=== PATIENT | female | born 1960 | race Two or more races ===

== ENCOUNTER 2025-01-28 23:17 | Emergency (ER) | payer MEDICARE, MEDICAID, SELFPAY ==
[2025-01-28 23:44] VITALS: BP 151/66; PULSE 66; RESP 18; TEMP 36.6; O2SAT 96; BMI 38.9
--- NOTE | 2025-01-29 00:23 | XR_ITS ---
Examination: CT cervical spine without contrast 2-D sagittal reconstructions 2-D coronal reconstructions 3-D reconstructions. Exam date and time: January 29, 2025, 0042 hours, comparison November 17, 2022 INDICATIONS: Neck pain radiating to left arm today CTDI:vol (mGy) 15.36 DLP: (mGycm) 317 Technique: Multiple 2 mm axial sections of the cervical spine have been obtained. The coronal and sagittal reconstructions have been obtained. 3-D reconstructions have been obtained. Low dose protocols were performed. One or more of the following dose reduction techniques were used; automated exposure control, adjustment of the mA and/or KV according to patient size, use of iterative reconstruction technique. Findings: Axial sections demonstrate intact base of the skull. C1 exhibit satisfactory relationship to the odontoid. No acute cervical vertebral body fracture seen. Alignment posterior spinous processes satisfactory. Moderate disc narrowing C6-C7 Impression: No acute cervical fracture. If symptoms persist, consider MRI cervical spine without contrast follow-up
--- NOTE | 2025-01-29 00:23 | XR_ITS ---
EXAMINATION: AP chest single view TECHNIQUE: AP portable upright chest single view Date and time: January 29, 2025, 0106 hours INDICATIONS: Chest pain shortness of breath beginning 2 days ago. FINDINGS: Normal heart size Mild ectasia thoracic aorta. No pneumonia or pulmonary edema Significant osteopenia IMPRESSION: No active disease
--- NOTE | 2025-01-29 00:23 | EKG_ITS ---
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
--- NOTE | 2025-01-29 00:24 | XR_ITS ---
Examination: CT brain head without contrast. 2-D sagittal coronal reconstructions Date and time of exam: January 29, 2025, 1241 hours INDICATIONS: Headaches left arm numbness onset today CTDI: vol (mGy): 48.50 DLP: (mGycm): 937 Technique: Multiple CT axial sections of the brain have been obtained, 5 mm slice thickness. Contrast has not been administered. 2-D sagittal, coronal reconstructions have been obtained Low dose protocols were performed. One or more of the following dose reduction techniques were used; automated exposure control, adjustment of the mA and/or KV according to patient size, use of iterative reconstruction technique. Findings: No significant ventricular enlargement. Intra-axial or extra-axial hemorrhage density is not seen. No mass effect or midline shift Basal cisterns are not remarkable. Fourth ventricle is midline. Cranial vault intact. Impression: Negative for acute hemorrhage, mass effect or midline shift Advise clinical correlation and follow-up accordingly
--- NOTE | 2025-01-29 00:24 | XR_ITS ---
Examination: CT chest, without intravenous contrast. CT abdomen, without intravenous contrast. CT pelvis, without intravenous contrast. 2-D sagittal and coronal reconstructions. 3-D reconstructions. Date and time of exam: January 29, 2025, 0044 hours, comparison April 19, 2022 INDICATIONS: Onset chest and abdominal pain today CTDI vol (mgy) 16.21 DLP (MGycm) 1216 Technique: Multiple CT images, 3.0 mm slice thickness, obtained chest, abdomen, pelvis, with the high-resolution 64 slice scanner.. Sagittal and coronal 2-D reconstructions are obtained. 3-D reconstructions Low dose protocols were performed. One or more of the following dose reduction techniques were used; automated exposure control, adjustment of the mA and/or KV according to patient size, use of iterative reconstruction technique. Findings: Thoracic aortic calcification no aneurysmal dilatation Pulmonary artery segments are not enlarged Moderate calcification left anterior descending coronary artery No paratracheal tracheobronchial or bronchopulmonary adenopathy 2 mm pulmonary nodule right upper lobe Atelectasis versus pneumonia in the right upper lobe and lingular segment No pulmonary edema No pleural disease Trace pericardial thickening Mild enlargement cardiac contour No visualized liver or splenic lesion, fatty infiltration in the liver Absent gallbladder No pancreatic or adrenal mass Moderate renal scarring, no hydronephrosis or renal calculi Aorta normal size Normal appendix No bowel obstruction Urinary bladder intact Prominent osteopenia with advanced disc narrowing L5-S1 IMPRESSION: Coronary artery calcification Small pericardial effusion Atelectasis versus pneumonia in the right upper lobe and lingular segment left upper lobe Fatty infiltration throughout the liver
--- NOTE | 2025-01-29 00:34 | PD.EDCHEST ---
ED Chest Pain RME/HPI General Chief Complaint: General Adult/Misc Complain Stated Complaint: thinks she has High BP Time Seen by Provider: 01/29/25 00:21 Arrival date/time: 01/28/25 23:17 RME / HPI RME / HPI narrative: See [facility] for Dr. Desai's HPI Documentation. Related Data Home Medications ?Medication ?Instructions ?Recorded ?Confirmed glyburide 2.5 mg tablet 2.5 mg PO DAILY ##0 05/14/07 06/05/21 lovastatin 20 mg tablet 40 mg PO HS ##0 05/14/07 06/05/21 gabapentin 600 mg tablet 600 mg PO TID #0 tabs 04/01/15 06/05/21 lisinopril 20 mg tablet 20 mg PO QDAY #0 tabs 09/01/16 06/05/21 albuterol sulfate 90 mcg/actuation 2 puff inhalation Q4H PRN wheeze 01/21/19 06/05/21 aerosol inhaler levothyroxine 150 mcg tablet 175 mcg PO QDAY 01/21/19 06/05/21 (Synthroid) oxybutynin chloride 10 mg 10 mg PO QDAY 03/07/20 06/05/21 tablet,extended release 24 hr estradiol 10 mcg vaginal tablet 10 mcg vaginal DIRECTED 06/05/21 06/05/21 (Vagifem) Previous Rx's ?Medication ?Instructions ?Recorded ferrous sulfate 325 mg (65 mg 1 tab PO BID #120 tabs 09/01/16 iron) tablet sumatriptan succinate 50 mg tablet 50 mg PO Q2H PRN migraine headache 01/11/19 (Imitrex) #10 tabs ipratropium bromide 0.02 % 0.5 mg (2.5 mL) inhalation Q6H 09/08/19 solution for inhalation #62.5 mL albuterol sulfate 90 mcg/actuation 2 puff inhalation QID #8.5 grams 08/04/22 aerosol inhaler azithromycin 250 mg tablet See Rx Instructions PO .COMPLEX #6 08/04/22 tabs alprazolam 0.5 mg tablet (Xanax) 0.5 mg PO BID PRN anxiety #10 tabs 01/29/25 azithromycin 500 mg tablet 500 mg PO QDAY 3 days #3 tabs 01/29/25 (Zithromax TRI-AMELIE) cefdinir 300 mg capsule 300 mg PO BID #14 caps 01/29/25 ondansetron 4 mg disintegrating 4 mg PO TID PRN nausea and 01/29/25 tablet vomiting 30 days #10 tabs Allergies Allergy/AdvReac Type Severity Reaction Status Date / Time No Known Allergies Allergy Verified 01/28/25 23:20 Review of Systems Review of Systems Systems Reviewed: All systems reviewed, normal except as documented Past Medical History Past Medical History CARDIAC: Positive Hypercholesterolemia and Hypertension RESPIRATORY: Positive Asthma and Sleep Apnea ENDOCRINE: Positive Diabetes Mellitus Type 2 and Hypothyroidism Surgical History SURGICAL: Positive Abdominal Surgery and Section ED Exam Narrative Physical exam: See [facility] for Dr. Desai's Physical Exam Documentation. Course Quality Measures none Orders Category Date Time Status EKG (ED ONLY) *Do not use* NOW Care 01/29/25 00:23 Completed Saline [Insert IV] NOW Care 01/29/25 00:22 Completed Straight [In and Out Catheter] X1 Care 01/29/25 00:[address] cervical spine wo con Stat Exams 01/29/25 00:[address] chest abdomen pelvis wo Stat Exams 01/29/25 00:[address] head/brain wo con Stat Exams 01/29/25 00:24 Completed EKG (ED Only) Stat Exams 01/29/25 00:23 Draft XR chest 1V portable Stat Exams 01/29/25 00:23 Completed BNP [B-Type Natriuretic Peptide] Stat Lab 01/29/25 01:03 Completed Bilirubin,Direct Stat Lab 01/29/25 01:03 Completed CBC Stat Lab 01/29/25 01:03 Completed CMP [Comprehensive Metabolic Panel] Stat Lab 01/29/25 01:03 Completed Free T3 Stat Lab 01/29/25 01:03 Completed Free T4 (Free Thyroxine) Stat Lab 01/29/25 01:03 Completed Hemoglobin A1C [Glycohemoglobin w (eAG)] Stat Lab 01/29/25 01:03 Completed Lipase Stat Lab 01/29/25 01:03 Completed Magnesium Stat Lab 01/29/25 01:03 Completed TSH [Thyroid Stimulating Hormone] Stat Lab 01/29/25 01:03 Completed Troponin I Stat Lab 01/29/25 01:03 Completed UA, C/S IF [Urinalysis, C/S if Indicated] Stat Lab 01/29/25 01:00 Completed ALPRazoLAM [Xanax] Med 01/29/25 00:22 Discontinued 0.5 mg PO X1 ONE Azithromycin Po [Zithromax PO] Med 01/29/25 03:13 Discontinued 500 mg PO X1 ONE Ondansetron Inj [Zofran Inj] Med 01/29/25 00:22 Discontinued 4 mg IVP X1 ONE Sodium Chloride 0.9% 1000 ml [Ns] 1,000 ml Med 01/29/25 00:22 Discontinued IV 999 mls/hr cefTRIAXone/D5w 1gm IV premix [Rocephin/D5w 1gm IV Med 01/29/25 03:13 Discontinued premix] 1 gm in 50 ml IV X1 Vital Signs Vital signs: Vital Signs Temperature 97.8 F 01/28/25 23:44 Pulse Rate 66 01/28/25 23:44 Respiratory Rate 18 01/28/25 23:44 Blood Pressure 151/66 H 01/28/25 23:44 Pulse Oximetry (%) 96 01/28/25 23:44 Oxygen Delivery Method Room Air 01/28/25 23:44 Chest Pain MDM Narrative MDM Narrative:: This section includes all my notes and documentations, including HPI, PE, and ED course. Thaddeus Desai MD HPI: 64 y/o female with Hx of Hypercholesterolemia, Hypertension, Asthma, and Diabetes Mellitus Type 2 presents with multiple concerns. Including a week history of worsening cough, productive cough, purulent sputum, and dyspnea. And frequent episodes in the past few days of varying in different symptoms, which can include intense fear, pounding and racing heart, sweating, chills, shaking, trouble breathing, chest pain, stomach pain, nausea, numbness and tingling in the hands and feet and face, confusion, hot flashes, and feeling faint. No other complaints. ROS: All negative except as documented in HPI. Physical Exam: General: Alert and oriented. Appears anxious. Eyes: Conjunctivae and lids clear. EOMI. PERRL. ENT: No nasal congestion. Pharynx normal. Tympanic membrane normal bilaterally. Neck: Supple. No carotid bruit. No JVD. Heart: RRR. Lungs: No respiratory distress. Good air movement with bibasilar rales. Chest: No tenderness. Abdomen: Soft and nontender. Normal bowel sounds. No distension. No rebound or guarding. Back: No tenderness. Legs: No clubbing, cyanosis, edema. Skin: Warm and dry. Neuro: Alert and oriented X 3. Cranial Nerves II-XII grossly intact. No peripheral motor deficits. I reviewed all diagnostic test results: My interpretation of the EKG is: Sinus rhythm (66 bpm) with first-degree AV block and nonspecific ST-T changes. My interpretation of the chest x-ray is no acute findings. My review of the Head/Brain CT report is no acute findings. My review of the Chest/Abdomen/Pelvis CT report is pneumonia. My review of the C-Spine CT report is no acute fracture. Blood tests and urine tests unremarkable. At this point, diagnoses include: Pneumonia Anxiety Treatment here included: IVF Xanax 0.5 mg Zofran 4 mg IV Rocephin 1 G IV Zithromax 500 mg orally She felt much better. Recommended more outpatient care. Based on my best medical judgment, made decision no further evaluation or treatment indicated at this time. Patient understands and agrees to the discharge instructions customized and printed, see below. Discharge instructions from Dr. Desai: 1. After extensive evaluation, there is no life-threatening condition.? Such as stroke or brain tumor or heart attack. 2. But you have pneumonia, see attached handout. Take cefdinir and Zithromax as prescribed. For good hydration, increase oral fluid and maintain clear urine. If dark or yellow, increase oral fluid. Zofran for nausea/vomiting. 3. Take Xanax as needed for stress/anxiety.? Avoid more than 2 to 3 pills/week, to prevent dependence on the medication. 4. See a private doctor on 02/01/2025. Ask for help until you are completely better. Ask to review all test results and official radiology reports, to make sure you receive all necessary follow-ups and monitoring. To make sure there is no serious underlying heart condition, ask to help you get more tests for your heart that cannot be done here in the ER.? Such as Holter Monitor (cardiac monitoring at home from a day to even a month), heart stress test (on treadmill or with medication), echocardiogram (imaging of your heart structures), heart catherization (checking for blockages in your heart arteries), and a referral to see a Survey Methodologist. 5. Seek immediate medical care with worsening or with any concerns.?? Thaddeus Desai MD Patient data External records reviewed:: [facility] previous records (Reviewed prior ED records from 08/04/22. Patient was seen for Asthmatic bronchitis.) Clinical information provided by:: patient Social determinants that could affect healthcare access:: none Patient has the following chronic illnesses:: Hypercholesterolemia, Hypertension, Asthma, Sleep Apnea, Diabetes Mellitus Type 2 and Hypothyroidism How is presenting disease/condition affected by chronic disease/condition?: exacerbated by Evaluation data The following diagnostics were reviewed and interpreted by me:: lab results, radiology exam(s) and EKG tracing(s) (My interpretation of the EKG is: Sinus rhythm (66 bpm) with first-degree AV block and nonspecific ST-T changes. Thaddeus Desai MD) Lab and/or radiology exams considered but not ordered:: None Interpretation Summary: I reviewed all diagnostic test results: My interpretation of the EKG is: Sinus rhythm (66 bpm) with first-degree AV block and nonspecific ST-T changes. My interpretation of the chest x-ray is no acute findings. My review of the Head/Brain CT report is no acute findings. My review of the Chest/Abdomen/Pelvis CT report is pneumonia. My review of the C-Spine CT report is no acute fracture. Blood tests and urine tests unremarkable. Medications / Prescriptions Medications or Prescriptions considered but not ordered:: None Medication administrations:: Medication Administration History Discontinued Medications Alprazolam (Alprazolam 0.25 Mg Tablet) 0.5 mg PO X1 ONE Stop: 01/29/25 00:23 Last Admin: 01/29/25 00:59 Dose: 0.5 mg Documented By: MADISON Azithromycin (Azithromycin 250 Mg Tablet) 500 mg PO X1 ONE Stop: 01/29/25 03:14 Last Admin: 01/29/25 03:42 Dose: 500 mg Documented By: MADISON Sodium Chloride (Ns) 1,000 mls @ 999 mls/hr IV .Q1H1M ONE Stop: 01/29/25 01:22 Last Infusion: 01/29/25 02:11 Dose: Infused Documented By: Admin: 01/29/25 01:00 Dose: 999 mls/hr Documented By: MADISON Ceftriaxone Sodium/Dextrose (Rocephin/D5w 1gm Iv Premix) 1 gm in 50 mls @ 100 mls/hr IV X1 ONE Stop: 01/29/25 03:42 Last Admin: 01/29/25 03:43 Dose: 100 mls/hr Documented By: MADISON Ondansetron HCl (Ondansetron Inj 2 Mg/Ml Inj 2 Ml) 4 mg IVP X1 ONE; Protocol Stop: 01/29/25 00:23 Last Admin: 01/29/25 00:59 Dose: 4 mg Documented By: MADISON Treatment here included: IVF Xanax 0.5 mg Zofran 4 mg IV Rocephin 1 G IV Zithromax 500 mg orally Consultations Consultation(s) initiated? (list below): No Diagnosis Chest Pain Differential Diagnosis: pneumothorax, atypical chest pain, st elevation myocardial infarction, costochondritis, chest pain, biliary colic and other (Torticollis, Migraine, Radiculopathy) Most likely diagnosis given after review of the tests above:: Pneumonia Anxiety Admission Indicated Admission indicated?: not indicated Explain why admission is indicated or not indicated:: With significant improvement and no condition needing emergent intervention, there was no indication for admission. Admission Request Was there a request for admission?: No Disposition Plan Disposition Plan: Discharge Discharge Attestation Discharge Attestation: The patient and all family members were given an opportunity to ask questions and understood the discharge instructions. Discharge instructions specifically effects, indications for sooner follow up or return to the emergency department, and the expected course of current diagnosis. Patient condition: Stable Discharge Plan Plan Patient Disposition: HOME (Self Care) Prescriptions/Referrals Prescriptions/Med Rec: New alprazolam [Xanax] 0.5 mg tablet 0.5 mg PO BID PRN (Reason: anxiety) Qty: 10 0RF ondansetron 4 mg tablet,disintegrating 4 mg PO TID PRN (Reason: nausea and vomiting) 30 Days Qty: 10 0RF cefdinir 300 mg capsule 300 mg PO BID Qty: 14 0RF azithromycin [Zithromax TRI-AMELIE] 500 mg tablet 500 mg PO QDAY 3 Days Qty: 3 0RF No Action estradiol [Vagifem] 10 mcg tablet 10 mcg vaginal DIRECTED Patient Comments: twice a week. sumatriptan succinate [Imitrex] 50 mg tablet 50 mg PO Q2H PRN (Reason: migraine headache) Qty: 10 0RF Rx Instructions: until response; not to exceed 4 doses in a 24 hour period oxybutynin chloride 10 mg tablet extended release 24hr 10 mg PO QDAY glyburide 2.5 MG tablet 2.5 mg PO DAILY Qty: 0 Patient Comments: TAKE ONE TAB BY MOUTH DAILY lovastatin 20 MG tablet 40 mg PO HS Qty: 0 gabapentin 600 MG tablet 600 mg PO TID Qty: 0 ferrous sulfate 325 ( 65 )MG tablet 1 tab PO BID Qty: 120 0RF lisinopril 20 MG tablet 20 mg PO QDAY Qty: 0 levothyroxine [Synthroid] 150 mcg Tablet 175 mcg PO QDAY albuterol sulfate 90 mcg/actuation HFA aerosol inhaler 2 puff INH Q4H PRN (Reason: wheeze) ipratropium bromide 0.02 % solution 0.5 mg IH Q6H Qty: 62.5 0RF albuterol sulfate 90 mcg/actuation HFA aerosol inhaler 2 puff inhalation QID Qty: 8.5 0RF azithromycin 250 mg tablet See Rx Instructions .ROUTE .COMPLEX Qty: 6 0RF Rx Instructions: For 250 mg dose pack: take 500 mg today (day 1), then 250 mg for 4 days (days 2-5) Referrals: Tia Bruce FNP [Primary Care Provider] - In 1 week Problem List Clinical Impression: Pneumonia Patient/Caregiver Discharge Instructions Discharge Activity: activity as tolerated Education Materials: ED Pneumonia (Adult) Additional Instructions: Discharge instructions from Dr. Desai: 1. After extensive evaluation, there is no life-threatening condition.? Such as stroke or brain tumor or heart attack. 2. But you have pneumonia, see attached handout. Take cefdinir and Zithromax as prescribed. For good hydration, increase oral fluid and maintain clear urine. If dark or yellow, increase oral fluid. Zofran for nausea/vomiting. 3. Take Xanax as needed for stress/anxiety.? Avoid more than 2 to 3 pills/week, to prevent dependence on the medication. 4. See a private doctor on 02/01/2025. Ask for help until you are completely better. Ask to review all test results and official radiology reports, to make sure you receive all necessary follow-ups and monitoring. To make sure there is no serious underlying heart condition, ask to help you get more tests for your heart that cannot be done here in the ER.? Such as Holter Monitor (cardiac monitoring at home from a day to even a month), heart stress test (on treadmill or with medication), echocardiogram (imaging of your heart structures), heart catherization (checking for blockages in your heart arteries), and a referral to see a Survey Methodologist. 5. Seek immediate medical care with worsening or with any concerns.?? Instrucciones de danielle del Dr. Desai: 1. Tras stefani evaluaci?n exhaustiva, no se detecta ninguna afecci?n que ponga en peligro king [place], katie un derrame cerebral, un tumor cerebral o un infarto. 2. Sin embargo, tiene neumon?a; consulte el folleto adjunto. [place] cefdinir y Zithromax seg?n lo prescrito. Para stefani buena hidrataci?n, aumente la ingesta de l?quidos y procure que la orina sea fidelina. Si la orina es oscura o amarilla, aumente la ingesta de l?quidos. [place] Zofran para las n?useas y los v?mitos. 3. [place] Xanax seg?n sea necesario para el estr?s y la ansiedad. Evite abe m?s de 2 o 3 pastillas por semana para prevenir la dependencia del medicamento. 4. Consulte a un m?dico particular el 01/02/2025. Solicite atenci?n m?dica hasta que se recupere por completo. Pida revisar todos los resultados de las pruebas y los informes radiol?gicos oficiales para asegurarse de recibir todos los seguimientos y controles necesarios. Para descartar cualquier afecci?n card?froilan subyacente grave, solicite ayuda para realizarse m?s pruebas card?acas que no se pueden realizar en urgencias. [place] katie un monitor Holter (monitoreo card?aco en casa, desde un d?a hasta un mes), stefani prueba de esfuerzo card?aco (en cinta rodante o con medicamentos), un ecocardiograma (imagen de las estructuras del coraz?n), un cateterismo card?aco (para detectar obstrucciones en las arterias coronarias) y stefani derivaci?n a un cardi?logo. 5. [place]que atenci?n m?dica inmediata si king estado empeora o si tiene alguna inquietud. Print Language: Bulgarian Stand Alone Forms: Veronika Award Info., Patient Portal Info Letter
[2025-01-29] MEDS: ONDANSETRON INJ 2 MG/ML INJ 2 ML 4 MG IVP (00:59)
[2025-01-29] MEDS: SODIUM CHLORIDE 0.9% 1000 ML 1,000 ML 999 ML IV (01:00)
[2025-01-29 01:01] VITALS: BP 158/90; PULSE 65; RESP 16; O2SAT 95
--- NOTE | 2025-01-29 01:01 | PRELIM_ITS ---
CT scan of the cervical spine without intravenous contrast (axial sections with sagittal and coronal reformats) January 29, 2025 0042 hours Clinical History: Neck pain radiating into left arm Comparison: No prior study is available for comparison. Findings: There is no evidence of acute fracture or subluxation. There is a nonfused apophysis versus chronic nonunited fracture at the tip of the C7 spinous process. Straightening of the cervical spine is identified, which may be due to muscle spasm or positioning. Mild degenerative changes are noted in the form of multilevel marginal osteophytes, decreased disc spaces and facet arthropathy. The prevertebral soft tissues are unremarkable. Impression: No focal bony destructive pathology identified. Other findings as described above. Suggest clinical correlation and follow up accordingly. Report Electronically Signed By: Vern Russell 01/29/2025 1:00:57 AM [EST]
--- NOTE | 2025-01-29 01:06 | PRELIM_ITS ---
CT scan of the head without intravenous contrast (axial sections with sagittal and coronal reformats) January 29, 2025 0041 hours Clinical history: Headache and left arm numbness Comparison: No prior study is available for comparison. Findings: There is no evidence of acute intracranial hemorrhage, mass effect or midline shift. There are periventricular white matter hypodensities, compatible with chronic small vessel ischemia. There is punctate calcification in the right temporal lobe, consistent with calcified granuloma. No definitive wedge shaped acute infarcts are detected. Please note that subtle early infarcts are better assessed using diffusion weighted MR imaging if clinically indicated. There is mild volume loss. Incidental note is made of a partially empty sella. There is atheromatous calcification of the intracranial arteries. The calvarium is unremarkable. The mastoid air cells and the visualized paranasal sinuses are clear. Impression: 1. No evidence of acute intracranial hemorrhage, mass effect or midline shift. If there are persistent clinical symptoms or additional clinical concerns consider an MRI. 2. Periventricular chronic small vessel ischemia and volume loss. 3. Other findings as described above. Report Electronically Signed By: Vern Russell 01/29/2025 1:05:44 AM [EST]
[2025-01-29 01:10] LABS: Collection Type, Urine Clean Catch; Squamous Epithelial Cell,Urine 0 /hpf (0-5)
[2025-01-29 01:19] LABS: Bilirubin,Urine Negative (Negative); Blood,Urine Negative (Negative); Clarity,Urine Clear (Clear/Hazy); Color,Urine Lt-Yellow (Lt Yel-Yel); Culture Indicated,Urine Not Indicated; Glucose, Urine Negative (Negative); Ketones,Urine Negative (Negative); Leukocyte Esterase,Urine Negative (Negative); Nitrite,Urine Negative (Negative); PH,Urine 6.0 (5.0-7.0); Protein,Urine Negative (Neg - Trace); RBC,Urine 1 /hpf (0-3); Specific Gravity,Urine 1.012 (1.001-1.035); Urobilinogen,Urine Negative mg/dL (0.0-1.0); WBC,Urine 1 /hpf (0-5)
[2025-01-29 01:21] LABS: Basophils # (Auto) 0.0 Thou/mm3 (0.0-0.2); Basophils % (Auto) 1 % (0-2.5); Eosinophils # (Auto) 0.2 Thou/mm3 (0.0-0.5); Eosinophils % (Auto) 4 % (0-10); Hematocrit 36.8 % (36.0-46.0); Hemoglobin 11.8 g/dL (12.0-16.0); Immature Granulocytes Auto 0.02 Thou/mm3 (0.00-0.00); Lymphocytes # (Auto) 1.3 Thou/mm3 (1.0-4.8); Lymphocytes % (Auto) 24 % (10-50); Mean Corpuscular HGB Conc 32.1 g/dl (31.0-37.0); Mean Corpuscular Hemoglobin 27.5 pg (25.0-35.0); Mean Corpuscular Volume 86 fL (80-100); Monocytes # (Auto) 0.5 Thou/mm3 (0.0-0.8); Monocytes % (Auto) 9 % (0-12); Neutrophils # (Auto) 3.4 Thou/mm3 (1.8-7.7); Neutrophils % (Auto) 63 % (37-80); Nucleated Red Blood Cell # 0.00 Thou/mm3 (0.00-0.00); Nucleated Red Blood Cell % 0 /100 WBC (0); Platelet Count 188 Thou/mm3 (140-440); RDW Standard Deviation 44.5 fL (36.4-46.3); Red Blood Count 4.29 Miln/mm3 (4.00-5.20); White Blood Count 5.4 Thou/mm3 (3.6-11.0)
[2025-01-29 01:36] LABS: Glucose Estimated Average 137 mg/dL (80-131); Hemoglobin A1C 6.4 % Hgb (4.8-6.0)
[2025-01-29 01:51] LABS: Alanine Aminotransferase 27 U/L (10-49); Albumin, Serum 4.5 gm/dL (3.4-4.8); Albumin/Globulin Ratio 2.8 (1.2-2.2); Alkaline Phosphatase 76 U/L (46-116); Anion Gap 9 (7-16); Aspartate Amino Transferase 27 U/L (0-34); BUN/Creatinine Ratio 34 Ratio (12-20); Bilirubin,Direct < 0.1 mg/dL (0.0-0.3); Bilirubin,Total 0.3 mg/dL (0.3-1.2); Blood Urea Nitrogen 17 mg/dL (9-23); Calcium 9.1 mg/dL (8.3-10.6); Calcium (Corrected) 9.1 mg/dL (8.5-10.1); Carbon Dioxide 25.3 mMol/L (20.0-31.0); Chloride 109 mMol/L (98-107); Creatinine (Component) 0.5 mg/dL (0.6-1.3); Estimated Creatinine Clearance 121.7 mL/min (>60); Globulin 1.6 gm/dL (2.3-3.5); Glucose 127 mg/dL (74-106); Lipase 36 U/L (12-53); Magnesium 2.2 mg/dL (1.6-2.6); Osmolality,Calculated 288 (275-295); Potassium 4.0 mMol/L (3.4-5.1); Sodium 143 mMol/L (136-145); Thyroid Stimulating Hormone 7.30 uIU/mL (0.55-4.78); Total Protein 6.1 gm/dL (5.7-8.2); Troponin I < 0.002 ng/mL (0.0-0.045); eGFR > 60 See Note
[2025-01-29 01:58] LABS: B-Type Natriuretic Peptide 60 pg/mL (0-100)
--- NOTE | 2025-01-29 02:27 | PRELIM_ITS ---
CT scan of the chest, abdomen and pelvis without intravenous contrast (axial sections with sagittal and coronal reformats) January 29, 2025 0044 hours Clinical History: Chest and abdominal pain. Comparison: None available at the time of this report. Findings: Small consolidation in the lingula and in the right upper lobe. There is no pleural effusion or pneumothorax. The aorta is within normal limits for age on this noncontrast study. No evidence of mediastinal mass or lymphadenopathy. There is a small pericardial effusion. The spleen, pancreas, adrenals and kidneys are unremarkable on this noncontrast study. Status postcholecystectomy. Hyperdense liver parenchyma. No evidence of bowel obstruction. No evidence of appendicitis. The urinary bladder is unremarkable. There is no free fluid or free air. Degenerative changes of the imaged portions of the spine. Chronic multilevel disc disease. No acute fractures. Coronary arteries calcifications. Fecal loading. The uterus and ovaries are within normal limits. Impression: 1. Coronary arteries calcifications. If acute myocardial infarction is clinically suspected, consider correlation with troponin. 2. Small pericardial effusion. 3. Small consolidation in the right upper lobe and in the lingula, atelectasis versus small foci of pneumonia. 4. Hyperdense liver parenchyma, of uncertain etiology; consider cirrhosis and iron overload in the differential diagnosis. 5. Fecal loading. Report Electronically Signed By: Vaibhav Martines 01/29/2025 2:26:33 AM [EST]
[2025-01-29 02:59] LABS: Free T3 2.8 pg/mL (2.3-4.2); Free T4 (Free Thyroxine) 1.24 ng/dL (0.89-1.76)
[2025-01-29] MEDS: AZITHROMYCIN 250 MG TABLET 500 MG PO (03:42)
[2025-01-29] MEDS: cefTRIAXone/D5w 1gm IV premix 1 GM/50 ML BAG IV (03:43)
[2025-01-29 03:44] VITALS: BP 142/71; PULSE 67; RESP 16; TEMP 36.6; O2SAT 98
== END 2025-01-29 04:10 | disposition home or self-care (01) ==
PROVIDERS: Emergency Provider Emergency Medicine; PCP Registered Nurse Community Health
DX: J18.9 Pneumonia, unspecified organism (principal)
CPT/HCPCS: 36415; 70450; 71045; 71250; 72125; 74176; 80053; 81001; 82248; 83036; 83690; 83735; 83880; 84439; 84443; 84481; 84484; 85025; 93005; 96361; 96374; 99284; J0696; J2405; J7030; A9270

== ENCOUNTER 2025-02-14 04:28 | Emergency (ER) | payer MEDICARE, MEDICAID, SELFPAY ==
[2025-02-14 04:39] VITALS: BP 181/83; PULSE 71; RESP 18; TEMP 36.8; O2SAT 96
--- NOTE | 2025-02-14 04:39 | PD.EDSOB ---
ED SOB =RME/HPI General Chief Complaint: Shortness of Breath/Dyspnea Stated Complaint: DIFFICULTY BREATHING Time Seen by Provider: 02/14/25 04:51 Arrival date/time: 02/14/25 04:28 RME / HPI RME / HPI Narrative: See [facility] for Dr. Desai's HPI Documentation. Related Data Home Medications ?Medication ?Instructions ?Recorded ?Confirmed glyburide 2.5 mg tablet 2.5 mg PO DAILY ##0 05/14/07 06/05/21 lovastatin 20 mg tablet 40 mg PO HS ##0 05/14/07 06/05/21 gabapentin 600 mg tablet 600 mg PO TID #0 tabs 04/01/15 06/05/21 lisinopril 20 mg tablet 20 mg PO QDAY #0 tabs 09/01/16 06/05/21 albuterol sulfate 90 mcg/actuation 2 puff inhalation Q4H PRN wheeze 01/21/19 06/05/21 aerosol inhaler levothyroxine 150 mcg tablet 175 mcg PO QDAY 01/21/19 06/05/21 (Synthroid) oxybutynin chloride 10 mg 10 mg PO QDAY 03/07/20 06/05/21 tablet,extended release 24 hr estradiol 10 mcg vaginal tablet 10 mcg vaginal DIRECTED 06/05/21 06/05/21 (Vagifem) Previous Rx's ?Medication ?Instructions ?Recorded ferrous sulfate 325 mg (65 mg 1 tab PO BID #120 tabs 09/01/16 iron) tablet sumatriptan succinate 50 mg tablet 50 mg PO Q2H PRN migraine headache 01/11/19 (Imitrex) #10 tabs ipratropium bromide 0.02 % 0.5 mg (2.5 mL) inhalation Q6H 09/08/19 solution for inhalation #62.5 mL albuterol sulfate 90 mcg/actuation 2 puff inhalation QID #8.5 grams 08/04/22 aerosol inhaler azithromycin 250 mg tablet See Rx Instructions PO .COMPLEX #6 08/04/22 tabs alprazolam 0.5 mg tablet (Xanax) 0.5 mg PO BID PRN anxiety #10 tabs 01/29/25 cefdinir 300 mg capsule 300 mg PO BID #14 caps 01/29/25 ondansetron 4 mg disintegrating 4 mg PO TID PRN nausea and 01/29/25 tablet vomiting 30 days #10 tabs Allergies Allergy/AdvReac Type Severity Reaction Status Date / Time No Known Allergies Allergy Verified 01/28/25 23:20 Review of Systems Review of Systems Systems Reviewed: All systems reviewed, normal except as documented Past Medical History Past Medical History CARDIAC: Positive Cardiac Disorders, Hypercholesterolemia and Hypertension RESPIRATORY: Positive Asthma and Sleep Apnea ENDOCRINE: Positive Endocrine Disorders, Diabetes Mellitus Type 2 and Hypothyroidism Surgical History SURGICAL: Positive Abdominal Surgery and Section ED Exam Narrative Physical exam: See [facility] for Dr. Desai's Physical Exam Documentation. Course Quality Measures none Orders Category Date Time Status EKG (ED ONLY) *Do not use* NOW Care 02/14/25 04:42 Completed Saline [Insert IV] NOW Care 02/14/25 04:41 Active EKG (ED Only) Stat Exams 02/14/25 04:42 Draft XR chest 1V portable Stat Exams 02/14/25 04:42 Taken BMP [Basic Metabolic Panel] Stat Lab 02/14/25 04:58 Received BNP [B-Type Natriuretic Peptide] Stat Lab 02/14/25 04:58 Received CBC Stat Lab 02/14/25 04:58 Received COVID-19 Antigen (In-House) Stat Lab 02/14/25 05:08 Received Cocci Serology IgM with reflex to IgG [Cocci Serology, Lab 02/14/25 05:04 Ordered Unk History] Stat Cocci Serology, IgG Stat Lab 02/14/25 05:04 Ordered Cocci Serology, IgM Stat Lab 02/14/25 05:04 Ordered D-Dimer Stat Lab 02/14/25 04:58 Received Influenza A & B Rapid Panel Stat Lab 02/14/25 05:08 Received Magnesium Stat Lab 02/14/25 04:58 Received TSH [Thyroid Stimulating Hormone] Stat Lab 02/14/25 04:58 Received UA, C/S IF [Urinalysis, C/S if Indicated] Stat Lab 02/14/25 04:43 Ordered VBG [Venous Blood Gas] Stat Lab 02/14/25 04:43 Completed Albuterol/Ipratr Rt Shayy [Duoneb Rt Shayy] Med 02/14/25 04:42 Discontinued 3 ml INH X1 ONE MethylPREDNISolone.* [SoluMEDROL Inj] Med 02/14/25 04:42 Discontinued 125 mg IVP X1 ONE Sodium Chloride 0.9% 1000 ml [Ns] 1,000 ml Med 02/14/25 04:42 Active IV 999 mls/hr cloNIDine HCL [Catapres] Med 02/14/25 04:52 Discontinued 0.2 mg PO X1 ONE Vital Signs Vital signs: Vital Signs Temperature 98.2 F 02/14/25 04:39 Pulse Rate 71 02/14/25 04:39 Respiratory Rate 18 02/14/25 04:39 Blood Pressure 181/83 H 02/14/25 04:39 Pulse Oximetry (%) 96 02/14/25 04:39 Oxygen Delivery Method Room Air 02/14/25 04:39 Shortness of Breath / Dyspnea MDM Narrative MDM Narrative:: This section includes all my notes and documentations, including HPI, PE, and ED course. Thaddeus Desai MD HPI: 64 y/o female with several days of worsening cough, productive cough, purulent sputum, and dyspnea. No obvious fever. No other complaints. ROS: All negative except as documented in HPI. Physical Exam: General: Alert and oriented. In mild respiratory distress. High BP noted. Eyes: Conjunctivae and lids clear. ENT: No nasal congestion. Pharynx normal. TM normal bilaterally. Neck: Supple. Heart: RRR. Lungs: In mild respiratory distress. Mildly decreased air movement with rhonchi. Abdomen: Soft and nontender. Normal bowel sounds. No distension. No rebound or guarding. Back: No CVA tenderness. Skin: Warm and dry. Legs: No edema. Neuro: Alert and oriented X 3. I reviewed all returned diagnostic test results: My interpretation of the EKG is: Sinus rhythm (63 bpm) with nonspecific ST-T changes. Thaddeus Desai MD I ordered IVF, DuoNeb, Solu-Medrol 125 mg IV, oral clonidine 0.2 mg, and diagnostic tests. At 6 AM on 02/14/2025, the care of the patient was transferred to Dr. Garrido. Thaddeus Desai MD Patient data External records reviewed:: [facility] previous records (Reviewed prior ED records from 01/29/25. Patient was seen for Pneumonia.) Clinical information provided by:: patient Social determinants that could affect healthcare access:: none Patient has the following chronic illnesses:: Hypercholesterolemia, Hypertension, Asthma, Sleep Apnea, Diabetes Mellitus Type 2 and Hypothyroidism How is presenting disease/condition affected by chronic disease/condition?: exacerbated by Evaluation data The following diagnostics were reviewed and interpreted by me:: lab results, radiology exam(s) and EKG tracing(s) (My interpretation of the EKG is: Sinus rhythm (63 bpm) with nonspecific ST-T changes. Thaddeus Desai MD) Lab and/or radiology exams considered but not ordered:: None Interpretation Summary: Complete diagnostic tests are pending. Medications / Prescriptions Medications or Prescriptions considered but not ordered:: None Medication administrations:: Medication Administration History Sodium Chloride (Ns) 1,000 mls @ 999 mls/hr IV .Q1H1M ONE Stop: 02/14/25 05:42 Last Infusion: 02/14/25 05:06 Dose: 1,000 mls/hr Documented By: Admin: 02/14/25 05:05 Dose: 999 mls/hr Documented By: HODA Discontinued Medications Albuterol/Ipratropium (Albuterol/Ipratropium (Duoneb) Rt Shayy 3 Ml Nebu) 3 ml INH X1 ONE Stop: 02/14/25 04:43 Last Admin: 02/14/25 05:18 Dose: 3 ml Documented By: ROGER Clonidine (Clonidine Hcl 0.1 Mg Tablet) 0.2 mg PO X1 ONE Stop: 02/14/25 04:53 Last Admin: 02/14/25 05:01 Dose: 0.2 mg Documented By: HODA Methylprednisolone Sodium Succinate (Methylprednisolone Sod Succ 62.5 Mg/Ml 2ml Vial) 125 mg IVP X1 ONE Stop: 02/14/25 04:43 Last Admin: 02/14/25 05:01 Dose: 125 mg Documented By: HODA I ordered IVF, DuoNeb, Solu-Medrol 125 mg IV, oral clonidine 0.2 mg, and diagnostic tests. Consultations Consultation(s) initiated? (list below): No Diagnosis Shortness of Breath Differential Diagnosis: acute exacerbation of chronic obstructive airways disease, congestive heart failure, community acquired pneumonia, asthma with exacerbation and pulmonary embolism Most likely diagnosis given after review of the tests above:: Complete diagnostic tests are pending. Admission Indicated Admission indicated?: not indicated Explain why admission is indicated or not indicated:: Complete diagnostic tests are pending. Admission Request Was there a request for admission?: No Disposition Plan Disposition Plan: other (specify) ( At 6 AM on 02/14/2025, the care of the patient was transferred to Dr. Garrido. ) Discharge Plan Prescriptions/Referrals Prescriptions/Med Rec: No Action estradiol [Vagifem] 10 mcg tablet 10 mcg vaginal DIRECTED Patient Comments: twice a week. sumatriptan succinate [Imitrex] 50 mg tablet 50 mg PO Q2H PRN (Reason: migraine headache) Qty: 10 0RF Rx Instructions: until response; not to exceed 4 doses in a 24 hour period oxybutynin chloride 10 mg tablet extended release 24hr 10 mg PO QDAY glyburide 2.5 MG tablet 2.5 mg PO DAILY Qty: 0 Patient Comments: TAKE ONE TAB BY MOUTH DAILY lovastatin 20 MG tablet 40 mg PO HS Qty: 0 gabapentin 600 MG tablet 600 mg PO TID Qty: 0 ferrous sulfate 325 ( 65 )MG tablet 1 tab PO BID Qty: 120 0RF lisinopril 20 MG tablet 20 mg PO QDAY Qty: 0 levothyroxine [Synthroid] 150 mcg Tablet 175 mcg PO QDAY albuterol sulfate 90 mcg/actuation HFA aerosol inhaler 2 puff INH Q4H PRN (Reason: wheeze) ipratropium bromide 0.02 % solution 0.5 mg IH Q6H Qty: 62.5 0RF albuterol sulfate 90 mcg/actuation HFA aerosol inhaler 2 puff inhalation QID Qty: 8.5 0RF azithromycin 250 mg tablet See Rx Instructions .ROUTE .COMPLEX Qty: 6 0RF Rx Instructions: For 250 mg dose pack: take 500 mg today (day 1), then 250 mg for 4 days (days 2-5) alprazolam [Xanax] 0.5 mg tablet 0.5 mg PO BID PRN (Reason: anxiety) Qty: 10 0RF ondansetron 4 mg tablet,disintegrating 4 mg PO TID PRN (Reason: nausea and vomiting) 30 Days Qty: 10 0RF cefdinir 300 mg capsule 300 mg PO BID Qty: 14 0RF Problem List Clinical Impression: SOB (shortness of breath) Patient/Caregiver Discharge Instructions Print Language: Croatian
--- NOTE | 2025-02-14 04:42 | EKG_ITS ---
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
--- NOTE | 2025-02-14 04:42 | XR_ITS ---
EXAMINATION: PA chest single view TECHNIQUE: Upright PA chest single view Date and time: February 14, 2025, 0448 hours, comparison January 29, 2025 INDICATIONS: Shortness of breath beginning 12 hours ago. FINDINGS: Mild prominence left ventricle Minor atelectasis in the left lower lung Mild vascular congestion No pneumonia or pulmonary edema IMPRESSION: Mild vascular congestion
[2025-02-14 05:01] VITALS: BP 149/85; PULSE 67
[2025-02-14] MEDS: MethylPREDNISolone SOD SUCC 62.5 MG/ML 2ML VIAL 125 MG IVP (05:01)
[2025-02-14] MEDS: SODIUM CHLORIDE 0.9% 1000 ML 1,000 ML 999 ML IV (05:05)
[2025-02-14 05:08] LABS: Base Excess, Venous 3 (-3-3); O2 Saturation, Venous 78 % (96-97); PCO2, Venous 41 mmHg (36-56); PO2, Venous 42 mmHg (15-58); pH, Venous 7.43 (7.33-7.66)
[2025-02-14 05:18] VITALS: PULSE 64; RESP 16; O2SAT 100
[2025-02-14] MEDS: ALBUTEROL/IPRATROPIUM (Duoneb) RT SOL 3 ML NEBU INH (05:18)
[2025-02-14 05:32] LABS: COVID-19 Antigen (In-House) Negative (Negative); Influenza A Ag Negative; Influenza B Ag Negative
[2025-02-14 05:33] LABS: Basophils # (Auto) 0.1 Thou/mm3 (0.0-0.2); Basophils % (Auto) 1 % (0-2.5); Eosinophils # (Auto) 0.1 Thou/mm3 (0.0-0.5); Eosinophils % (Auto) 1 % (0-10); Hematocrit 39.6 % (36.0-46.0); Hemoglobin 12.6 g/dL (12.0-16.0); Immature Granulocytes Auto 0.05 Thou/mm3 (0.00-0.00); Lymphocytes # (Auto) 2.3 Thou/mm3 (1.0-4.8); Lymphocytes % (Auto) 23 % (10-50); Mean Corpuscular HGB Conc 31.8 g/dl (31.0-37.0); Mean Corpuscular Hemoglobin 27.4 pg (25.0-35.0); Mean Corpuscular Volume 86 fL (80-100); Monocytes # (Auto) 0.6 Thou/mm3 (0.0-0.8); Monocytes % (Auto) 6 % (0-12); Neutrophils # (Auto) 6.9 Thou/mm3 (1.8-7.7); Neutrophils % (Auto) 69 % (37-80); Nucleated Red Blood Cell # 0.00 Thou/mm3 (0.00-0.00); Nucleated Red Blood Cell % 0 /100 WBC (0); Platelet Count 215 Thou/mm3 (140-440); RDW Standard Deviation 43.3 fL (36.4-46.3); Red Blood Count 4.60 Miln/mm3 (4.00-5.20); White Blood Count 10.1 Thou/mm3 (3.6-11.0)
[2025-02-14 05:42] LABS: D-Dimer < 250 ng/mL (<600)
[2025-02-14 05:46] LABS: Anion Gap 10 (7-16); BUN/Creatinine Ratio 28 Ratio (12-20); Blood Urea Nitrogen 14 mg/dL (9-23); Calcium 9.2 mg/dL (8.3-10.6); Carbon Dioxide 26.2 mMol/L (20.0-31.0); Chloride 107 mMol/L (98-107); Creatinine (Component) 0.5 mg/dL (0.6-1.3); Glucose 164 mg/dL (74-106); Magnesium 2.1 mg/dL (1.6-2.6); Osmolality,Calculated 289 (275-295); Potassium 4.0 mMol/L (3.4-5.1); Sodium 143 mMol/L (136-145); Thyroid Stimulating Hormone 2.15 uIU/mL (0.55-4.78); eGFR > 60 See Note
[2025-02-14 05:55] LABS: B-Type Natriuretic Peptide 125 pg/mL (0-100)
[2025-02-14 06:09] LABS: Collection Type, Urine Clean Catch
[2025-02-14 06:28] LABS: Bilirubin,Urine Negative (Negative); Blood,Urine Negative (Negative); Clarity,Urine Clear (Clear/Hazy); Color,Urine Colorless (Lt Yel-Yel); Culture Indicated,Urine Not Indicated; Glucose, Urine Negative (Negative); Ketones,Urine Negative (Negative); Leukocyte Esterase,Urine Negative (Negative); Nitrite,Urine Negative (Negative); PH,Urine 6.5 (5.0-7.0); Protein,Urine Negative (Neg - Trace); RBC,Urine < 1 /hpf (0-3); Specific Gravity,Urine 1.012 (1.001-1.035); Squamous Epithelial Cell,Urine 1 /hpf (0-5); Urobilinogen,Urine Negative mg/dL (0.0-1.0); WBC,Urine < 1 /hpf (0-5)
[2025-02-14 07:09] VITALS: BP 117/55; PULSE 60; RESP 18; TEMP 36.6; O2SAT 95
[2025-02-14 09:20] VITALS: BP 130/72; PULSE 79; RESP 18; O2SAT 95
--- NOTE | 2025-02-14 09:22 | EDNOTE_ITS ---
Emergency Room Addendum Addendum Narrative: 0600: Care assumed from Dr. Desai, the previous shift emergency physician. Past medical, surgical, social and family history reviewed. Vitals and home medications reviewed. I will assume the care of the patient at this time. Please refer to the emergency department record for history and examination from initial visit.? Physical exam by me shows patient under no acute distress at this time. 0900: Plan is to discharge with shorntess of breath, asthma with exacerbation, and anxiety. Results Objective Laboratory: Laboratory Last Values WBC 10.1 Thou/mm3 (3.6-11.0) 02/14/25 04:58 RBC 4.60 Miln/mm3 (4.00-5.20) 02/14/25 04:58 Hgb 12.6 g/dL (12.0-16.0) 02/14/25 04:58 Hct 39.6 % (36.0-46.0) 02/14/25 04:58 MCV 86 fL (80-100) 02/14/25 04:58 MCH 27.4 pg (25.0-35.0) 02/14/25 04:58 MCHC 31.8 g/dl (31.0-37.0) 02/14/25 04:58 RDW Std Deviation 43.3 fL (36.4-46.3) 02/14/25 04:58 Plt Count 215 Thou/mm3 (140-440) 02/14/25 04:58 Neut % (Auto) 69 % (37-80) 02/14/25 04:58 Lymph % (Auto) 23 % (10-50) 02/14/25 04:58 [place] % (Auto) 6 % (0-12) 02/14/25 04:58 Eos % (Auto) 1 % (0-10) 02/14/25 04:58 Baso % (Auto) 1 % (0-2.5) 02/14/25 04:58 Neut # (Auto) 6.9 Thou/mm3 (1.8-7.7) 02/14/25 04:58 Lymph # (Auto) 2.3 Thou/mm3 (1.0-4.8) 02/14/25 04:58 [place] # (Auto) 0.6 Thou/mm3 (0.0-0.8) 02/14/25 04:58 Eos # (Auto) 0.1 Thou/mm3 (0.0-0.5) 02/14/25 04:58 Baso # (Auto) 0.1 Thou/mm3 (0.0-0.2) 02/14/25 04:58 Immature Gran # (Auto) 0.05 Thou/mm3 (0.00-0.00) H 02/14/25 04:58 Absolute Nucleated RBC 0.00 Thou/mm3 (0.00-0.00) 02/14/25 04:58 Immature Gran % 1 % (0-0) H 02/14/25 04:58 Nucleated RBC % 0 /100 WBC (0) 02/14/25 04:58 D-Dimer < 250 ng/mL (<600) 02/14/25 04:58 VBG pH 7.43 (7.33-7.66) 02/14/25 04:43 VBG pCO2 41 mmHg (36-56) 02/14/25 04:43 VBG pO2 42 mmHg (15-58) 02/14/25 04:43 VBG O2 Sat (Alfie) 78 % (96-97) L 02/14/25 04:43 VBG Base Excess 3 (-3-3) 02/14/25 04:43 Sodium 143 mMol/L (136-145) 02/14/25 04:58 Potassium 4.0 mMol/L (3.4-5.1) 02/14/25 04:58 Chloride 107 mMol/L (98-107) 02/14/25 04:58 Carbon Dioxide 26.2 mMol/L (20.0-31.0) 02/14/25 04:58 Anion Gap 10 (7-16) 02/14/25 04:58 BUN 14 mg/dL (9-23) 02/14/25 04:58 Creatinine 0.5 mg/dL (0.6-1.3) L 02/14/25 04:58 Estim Creat Clear Calc Not Performed. 02/14/25 04:58 eGFR > 60 See Note (60-) 02/14/25 04:58 BUN/Creatinine Ratio 28 Ratio (12-20) H 02/14/25 04:58 Glucose 164 mg/dL (74-106) H 02/14/25 04:58 Calculated Osmolality 289 (275-295) 02/14/25 04:58 Calcium 9.2 mg/dL (8.3-10.6) 02/14/25 04:58 Magnesium 2.1 mg/dL (1.6-2.6) 02/14/25 04:58 B-Natriuretic Peptide 125 pg/mL (0-100) H 02/14/25 04:58 TSH 2.15 uIU/mL (0.55-4.78) D 02/14/25 04:58 Ur Collection Type Clean Catch 02/14/25 05:56 Urine Color Colorless (Lt Yel-Yel) A 02/14/25 05:56 Urine Clarity Clear (Clear/Hazy) 02/14/25 05:56 Urine pH 6.5 (5.0-7.0) 02/14/25 05:56 Ur Specific [place] 1.012 (1.001-1.035) 02/14/25 05:56 Urine Protein Negative (Neg - Trace) 02/14/25 05:56 Urine Glucose (UA) Negative (Negative) 02/14/25 05:56 Urine Ketones Negative (Negative) 02/14/25 05:56 Urine Blood Negative (Negative) 02/14/25 05:56 Urine Nitrite Negative (Negative) 02/14/25 05:56 Urine Bilirubin Negative (Negative) 02/14/25 05:56 Urine Urobilinogen (Auto) Negative mg/dL (0.0-1.0) 02/14/25 05:56 Ur Leukocyte Esterase Negative (Negative) 02/14/25 05:56 Urine RBC < 1 /hpf (0-3) 02/14/25 05:56 Urine WBC < 1 /hpf (0-5) 02/14/25 05:56 Ur Squamous Epith Cells 1 /hpf (0-5) 02/14/25 05:56 Urine Bacteria None (None) 02/14/25 05:56 Ur Culture Indicated? Not Indicated 02/14/25 05:56 Influenza A (Rapid) Negative 02/14/25 05:08 Influenza B (Rapid) Negative 02/14/25 05:08 SARS-CoV-2 Ag (Rapid) Negative (Negative) 02/14/25 05:08 Imaging: Procedure(s): XR chest 1V portable Accession Number(s): [id number] cc: Thaddeus Desai MD; Hasmukh Condon MD; NO PRIMARY/FAMILY,PHYSICIAN~ EXAMINATION: PA chest single view TECHNIQUE: Upright PA chest single view Date and time: February 14, 2025, 0448 hours, comparison January 29, 2025 INDICATIONS: Shortness of breath beginning 12 hours ago. FINDINGS: Mild prominence left ventricle Minor atelectasis in the left lower lung Mild vascular congestion No pneumonia or pulmonary edema IMPRESSION: Mild vascular congestion Dictated By: Hasmukh Condon MD
[2025-02-14 14:30] LABS: Cocci Serology, IgM Negative (Negative)
[2025-02-15 14:03] LABS: Cocci Serology, IgG Negative (Negative)
== END 2025-02-14 09:21 | disposition home or self-care (01) ==
PROVIDERS: Emergency Medicine; Emergency Provider Emergency Medicine
DX: J45.901 Unspecified asthma with (acute) exacerbation (principal); F41.9 Anxiety disorder, unspecified; E78.00 Pure hypercholesterolemia, unspecified; I10 Essential (primary) hypertension; R94.31 Abnormal electrocardiogram [ECG] [EKG]
CPT/HCPCS: 36415; 71045; 80048; 81001; 82803; 83735; 83880; 84443; 85025; 85379; 86331; 86635; 87502; 87811; 93005; 94640; 96361; 96374; 99284; A9270; J2919; J7030